=== PATIENT | male | born 1955 | race Caucasian/White ===

== ENCOUNTER → 2017-04-08 11:53 | Emergency (ER) | payer MEDICARE | END | disposition left against medical advice (07) | LOC: ER 11:53 | DX: Z53.21 Procedure and treatment not carried out due to patient leaving prior to being seen by health care provider (principal) ==

== ENCOUNTER → 2017-05-22 | Day surgery (SDC) | payer MEDICARE | END | disposition home or self-care (01) | LOC: SDC 08:00 | DX: S82.842A Displaced bimalleolar fracture of left lower leg, initial encounter for closed fracture (principal); S93.439A Sprain of tibiofibular ligament of unspecified ankle, initial encounter; I10 Essential (primary) hypertension; E11.9 Type 2 diabetes mellitus without complications; J44.9 Chronic obstructive pulmonary disease, unspecified; I25.10 Atherosclerotic heart disease of native coronary artery without angina pectoris; K21.9 Gastro-esophageal reflux disease without esophagitis; F17.210 Nicotine dependence, cigarettes, uncomplicated; X50.1XXA Overexertion from prolonged static or awkward postures, initial encounter | CPT/HCPCS: J1885; J2370; J2704; J2765 ==